=== PATIENT | female | born 1945 | race Asian ===

== ENCOUNTER → 2016-12-01 | Outpatient (CLI) | payer OTHER, MEDICARE ==
[~2016-12-01] MED LIST: "\\\"CHOLESTEROL MED\\\"" PO; DARVOCET N 1001 TAB PO; DAYPRO600 M1 PO; MOTRIN800 MG PO; ROBAXIN750 MG PO; [UNRECOGNIZED DRUG - REMARK] PO
== END | disposition home or self-care (01) ==
LOC: US 11-21 07:00
DX: R10.32 Left lower quadrant pain (principal)

== ENCOUNTER → 2017-04-16 | Outpatient (CLI) | payer OTHER, MEDICARE | END | disposition home or self-care (01) | LOC: MAMMO 15:36 | DX: Z12.31 Encounter for screening mammogram for malignant neoplasm of breast (principal) ==

== ENCOUNTER 2019-12-07 09:23 | Emergency (ER) | payer OTHER ==
[~2019-12-07] VITALS: Ht 154.9 cm; Wt 65.8 kg
[2019-12-07] MEDS ORDERED: PREDNISONE20 M1 PO (11:34)
[2019-12-07] MEDS ORDERED: ROBAXIN-750750 MG PO (11:34)
== END 2019-12-07 12:00 | disposition home or self-care (01) ==
LOC: ED 09:23
DX: M54.41 Lumbago with sciatica, right side (principal); I10 Essential (primary) hypertension; F41.9 Anxiety disorder, unspecified; E78.00 Pure hypercholesterolemia, unspecified